=== PATIENT | female | born 1940 | race Two or more races ===

== ENCOUNTER 2023-11-18 11:26 | Observation (INO) | payer OTHER ==
[2023-11-18] MEDS ORDERED: PANTOPRAZOLE SODIUM 40 MG VIAL ONE (12:49)
[2023-11-18] MEDS: PANTOPRAZOLE SODIUM 40 MG VIAL IVPUSH ONE (12:58)
[2023-11-18 13:05] LABS: PROTHROMBIN TIME (PATIENT) 11.4 SEC (9.7-13.0)
[2023-11-18 13:08] LABS: HEMATOCRIT 41.5 % (32.4-45.2); HEMOGLOBIN 12.8 G/dL (10.7-15.3); MCH 28.5 pg (25.7-33.7); MCHC 30.8 g/dl (32.0-36.0); MEAN CELL VOLUME 92.6 fl (80-96); MEAN PLT VOLUME 8.5 fl (7.5-11.1); PLATELET COUNT 292.9 10^3/uL (134-434); RBC 4.48 10^6/uL (3.60-5.2); RDW 14.9 % (11.6-15.6); WHITE BLOOD COUNT 7.4 10^3/uL (4.0-10.8)
[2023-11-18 13:15] LABS: ALBUMIN 4.4 g/dl (3.4-5.0); CALCIUM 9.6 mg/dl (8.5-10.1); CREATININE 0.6 mg/dl (0.6-1.3); MAGNESIUM 1.9 mg/dL (1.8-2.4); POTASSIUM 4.2 mmol/L (3.5-5.1)
[2023-11-18 13:33] LABS: PLATELET ESTIMATE ADEQUATE
[2023-11-18 19:07] VITALS: RESP 18; BMI 20.4
[2023-11-18] MEDS: PANTOPRAZOLE SODIUM 40 MG VIAL IVPUSH SCH (21:08)
[2023-11-19 07:55] LABS: HEMATOCRIT 37.5 % (32.4-45.2); HEMOGLOBIN 11.6 G/dL (10.7-15.3); MCH 28.4 pg (25.7-33.7); MCHC 30.9 g/dl (32.0-36.0); MEAN CELL VOLUME 91.6 fl (80-96); MEAN PLT VOLUME 8.6 fl (7.5-11.1); PLATELET COUNT 294.5 10^3/uL (134-434); RBC 4.09 10^6/uL (3.60-5.2); RDW 15.1 % (11.6-15.6); WHITE BLOOD COUNT 6.8 10^3/uL (4.0-10.8)
[2023-11-19 08:10] LABS: CALCIUM 9.3 mg/dl (8.5-10.1); CREATININE 0.6 mg/dl (0.6-1.3); MAGNESIUM 1.8 mg/dL (1.8-2.4); POTASSIUM 4.1 mmol/L (3.5-5.1)
[2023-11-19 17:15] LABS: HEMATOCRIT 36.5 % (32.4-45.2); HEMOGLOBIN 11.4 G/dL (10.7-15.3); MCH 28.8 pg (25.7-33.7); MCHC 31.3 g/dl (32.0-36.0); MEAN CELL VOLUME 92.2 fl (80-96); MEAN PLT VOLUME 8.9 fl (7.5-11.1); PLATELET COUNT 293.8 10^3/uL (134-434); RBC 3.96 10^6/uL (3.60-5.2); WHITE BLOOD COUNT 7.4 10^3/uL (4.0-10.8)
[2023-11-19] MEDS: HYDROCORTISONE 2.5% TOPICAL CREAM 30 GM TUBE TP SCH (21:26)
[2023-11-20 08:55] LABS: HEMATOCRIT 35.1 % (32.4-45.2); MCH 28.9 pg (25.7-33.7); MCHC 31.3 g/dl (32.0-36.0); MEAN CELL VOLUME 92.3 fl (80-96); PLATELET COUNT 286.1 10^3/uL (134-434); RDW 15.5 % (11.6-15.6)
[2023-11-20 09:59] LABS: ALBUMIN 3.7 g/dl (3.4-5.0); BILIRUBIN,TOTAL 0.9 mg/dl (0.2-1); CALCIUM 8.9 mg/dl (8.5-10.1); CREATININE 0.6 mg/dl (0.6-1.3); PHOSPHOROUS 3.8 (2.5-4.9); POTASSIUM 4.4 mmol/L (3.5-5.1); TOT PROT 5.8 g/dl (6.4-8.2)
[2023-11-20 14:20] VITALS: BP 130/69; PULSE 66; TEMP 98
== END 2023-11-20 16:37 | disposition home or self-care (01) ==
LOC: FER 11:26 → FM/S 15:56
PROVIDERS: ADMIT Internal Medicine; ATTEND Internal Medicine
PROC: 3E033GC Introduction of Other Therapeutic Substance into Peripheral Vein, Percutaneous Approach (ICD-10-PCS; principal; 2023-11-18)
DX: K62.5 Hemorrhage of anus and rectum (principal); R93.5 Abnormal findings on diagnostic imaging of other abdominal regions, including retroperitoneum; K80.20 Calculus of gallbladder without cholecystitis without obstruction; K57.90 Diverticulosis of intestine, part unspecified, without perforation or abscess without bleeding
CPT/HCPCS: 36415; 74177-TC; 80048; 80053; 82272; 82550; 83605; 83690; 83735; 84100; 84484; 85025; 85027; 85610; 85730; 86850; 86900; 86901; 93005; 93010; 96374; 96376; 99285-25; G0378; Q9967